=== PATIENT | male | born 1980 | race Caucasian/White ===

== ENCOUNTER 2021-07-11 14:04 | Emergency (ER) | payer MEDICAID ==
[~2021-07-11] VITALS: Ht 177.8 cm; Wt 100.0 kg
[~2021-07-11 14:04] MED LIST: NO HOME MEDS; PENI500T2 PO; TRAM50TA2 PO
[2021-07-11 14:08] VITALS: BP 153/103
== END 2021-07-11 15:34 | disposition home or self-care (01) ==
LOC: ER 14:05
DX: F15.90 Other stimulant use, unspecified, uncomplicated (principal); F17.200 Nicotine dependence, unspecified, uncomplicated; Z88.8 Allergy status to other drugs, medicaments and biological substances; Z79.2 Long term (current) use of antibiotics; Z79.899 Other long term (current) drug therapy
CPT/HCPCS: 99281